=== PATIENT | female | born 1960 | race Caucasian/White ===

== ENCOUNTER 2018-04-09 21:31 | Inpatient (IN) | payer MEDICAID ==
[~2018-04-09] VITALS: Ht 160 cm; Wt 90.0 kg
[2018-04-09 21:38] VITALS: Ht 160 cm; Wt 90.0 kg
[2018-04-09 22:20] LABS: BASOPHIL % 0.8 % (0-2); PLATELET COUNT 365 x10^3mcL (130-400); RED CELL DISTRIBUTION WIDTH 13.1 % (11.5-14.5)
[2018-04-09 22:45] LABS: CALCIUM 8.9 mg/dL (8.5-10.1); CARBON DIOXIDE 26.8 mmol/L (21-32); CHLORIDE SERUM 106 mmol/L (98-107); CREATININE SERUM 0.9 mg/dL (0.6-1.0); GFR1 > 60 mL/min; GLUCOSE SERUM 147 mg/dL (74-106); POTASSIUM SERUM 3.5 mmol/L (3.5-5.1); SODIUM SERUM 141 mmol/L (136-145)
[2018-04-09 22:49] LABS: ALBUMIN 3.6 g/dL (3.4-5.0); ALKALINE PHOSPHATASE 91 U/L (46-116); ALT/SGPT 34 U/L (14-59); AST/SGOT 17 U/L (15-37); BILIRUBIN TOTAL 0.88 mg/dL (0.20-1.00); TOTAL PROTEIN, SERUM 7.6 g/dL (6.4-8.2)
[2018-04-09] MEDS ORDERED: ASPIRIN ADULT L81 M5 PO (23:35)
[2018-04-09] MEDS ORDERED: XANAX0.5 MG PO (23:35)
[2018-04-09] MEDS ORDERED: PRA40 PO (23:35)
[2018-04-09] MEDS ORDERED: ATENOLOL25 MG PO (23:35)
[2018-04-09] MEDS ORDERED: GOOD SENSE OMEP20 MG PO (23:36)
[2018-04-09 23:59] LABS: CHOLESTEROL/HDL RATIO 3.9; MAGNESIUM 2.2 mg/dL (1.8-2.4); PHOSPHOROUS 3.4 mg/dL (2.5-4.9)
[2018-04-10] VITALS (7 sets, daily range): BP systolic 93–116; BP diastolic 67–77
[2018-04-10 00:08] LABS: FREE T4 0.9 ng/dL (0.76-1.46); FREE THYROXINE INDEX 2.2 ug/dL (1.4-4.5); T4(THYROXINE) 8.1 ug/dL (4.7-13.3)
[2018-04-10 00:22] LABS: T3 TOTAL 1.37 ng/mL
[2018-04-10 04:12] LABS: microscopic required? YES; urine erythrocyte TRACE (NEGATIVE)
[2018-04-11 05:53] VITALS: BP 114/61
[2018-04-11 06:10] LABS: BASOPHIL % 0.2 % (0-2); PLATELET COUNT 304 x10^3mcL (130-400)
[2018-04-11 06:27] LABS: CALCIUM 8.3 mg/dL (8.5-10.1); CARBON DIOXIDE 28.6 mmol/L (21-32); CHLORIDE SERUM 108 mmol/L (98-107); CREATININE SERUM 0.7 mg/dL (0.6-1.0); GFR1 > 60 mL/min; GLUCOSE SERUM 91 mg/dL (74-106); POTASSIUM SERUM 3.7 mmol/L (3.5-5.1); SODIUM SERUM 142 mmol/L (136-145)
[2018-04-11 08:57] VITALS: BP 102/58
[2018-04-11] MEDS ORDERED: ELIQUIS2.5 MG PO (11:53)
[2018-04-11] MEDS ORDERED: METOPROLOL TART25 M1 PO (11:54)
[2018-04-11 12:05] VITALS: BP 102/58
[2018-04-11 13:08] VITALS: BP 112/69
== END 2018-04-11 14:20 | disposition home or self-care (01) | DRG 243 ==
LOC: ED 21:31 → DU 23:12
PROVIDERS: Emergency Medicine; Internal Medicine
DX: K21.9 Gastro-esophageal reflux disease without esophagitis (principal); I50.43 Acute on chronic combined systolic (congestive) and diastolic (congestive) heart failure; I48.91 Unspecified atrial fibrillation; M94.0 Chondrocostal junction syndrome [Tietze]; I10 Essential (primary) hypertension; J44.9 Chronic obstructive pulmonary disease, unspecified; R73.03 Prediabetes; E03.9 Hypothyroidism, unspecified; E78.00 Pure hypercholesterolemia, unspecified; E66.9 Obesity, unspecified; Z68.35 Body mass index [BMI] 35.0-35.9, adult; Z79.82 Long term (current) use of aspirin
CPT/HCPCS: 83880; 84439; J1644; J7030; Q0092

== ENCOUNTER 2018-06-29 09:13 | Emergency (ER) | payer MEDICAID ==
[~2018-06-29] VITALS: Ht 160 cm; Wt 87.1 kg
[~2018-06-29 09:13] MED LIST: ASPIRIN ADULT L81 M5 PO; ATENOLOL25 MG PO; ELIQUIS2.5 MG PO; GOOD SENSE OMEP20 MG PO; METOPROLOL TART25 M1 PO; PRA40 PO; XANAX0.5 MG PO
[2018-06-29 09:49] LABS: BASOPHIL % 0.4 % (0-2); PLATELET COUNT 352 x10^3mcL (130-400); RED CELL DISTRIBUTION WIDTH 13.2 % (11.5-14.5)
[2018-06-29 10:13] LABS: CARBON DIOXIDE 31.3 mmol/L (21-32); CHLORIDE SERUM 104 mmol/L (98-107); CREATININE SERUM 0.7 mg/dL (0.6-1.0); GFR1 > 60 mL/min; GLUCOSE SERUM 97 mg/dL (74-106); POTASSIUM SERUM 4.2 mmol/L (3.5-5.1); SODIUM SERUM 140 mmol/L (136-145)
[2018-06-29 10:30] LABS: ALBUMIN 3.9 g/dL (3.4-5.0); ALKALINE PHOSPHATASE 105 U/L (46-116); ALT/SGPT 35 U/L (14-59); AMYLASE 43 U/L (25-115); AST/SGOT 18 U/L (15-37); BILIRUBIN TOTAL 1.1 mg/dL (0.20-1.00); LIPASE 160 IU/L (73-393)
[2018-06-29 10:32] LABS: TOTAL PROTEIN, SERUM 8.6 g/dL (6.4-8.2)
[2018-06-29 14:38] VITALS: BP 108/56
== END 2018-06-29 14:38 | disposition home or self-care (01) ==
LOC: ED 09:13
DX: R10.32 Left lower quadrant pain (principal); N88.8 Other specified noninflammatory disorders of cervix uteri; J45.909 Unspecified asthma, uncomplicated; J44.9 Chronic obstructive pulmonary disease, unspecified; I10 Essential (primary) hypertension; Z88.1 Allergy status to other antibiotic agents; Z88.5 Allergy status to narcotic agent
CPT/HCPCS: 36415

== ENCOUNTER 2019-03-09 23:35 | Emergency (ER) | payer MEDICAID ==
[~2019-03-09] VITALS: Ht 157.5 cm; Wt 87.3 kg
[2019-03-09 23:40] VITALS: BP 118/69; Ht 157.5 cm; Wt 87.3 kg
== END 2019-03-10 00:16 | disposition home or self-care (01) ==
LOC: ED 23:35
DX: F41.9 Anxiety disorder, unspecified (principal); R19.7 Diarrhea, unspecified; J44.9 Chronic obstructive pulmonary disease, unspecified; I10 Essential (primary) hypertension; Z88.1 Allergy status to other antibiotic agents; Z88.5 Allergy status to narcotic agent

== ENCOUNTER 2019-05-29 17:49 | Emergency (ER) | payer MEDICAID ==
[~2019-05-29] VITALS: Ht 160 cm; Wt 86.6 kg
[2019-05-29 18:23] VITALS: Ht 160 cm; Wt 86.6 kg
[2019-05-29 23:56] VITALS: BP 128/78
== END 2019-05-29 23:56 | disposition home or self-care (01) ==
LOC: ED 17:49
DX: L02.212 Cutaneous abscess of back [any part, except buttock and flank] (principal); L03.312 Cellulitis of back [any part except buttock and flank]; N61.1 Abscess of the breast and nipple; D24.2 Benign neoplasm of left breast; J44.9 Chronic obstructive pulmonary disease, unspecified; I10 Essential (primary) hypertension; Z88.1 Allergy status to other antibiotic agents; Z88.5 Allergy status to narcotic agent
CPT/HCPCS: 76641; 76642; J2001